=== PATIENT | male | born 1975 | race African-American/Black ===

== ENCOUNTER 2022-11-13 08:36 | Emergency (ER) | payer OTHER, SELFPAY ==
[2022-11-13] VITALS (66 sets, daily range): BP systolic 124–160; BP diastolic 71–99; PULSE 67–115; RESP 18; TEMP 36.2; O2SAT 95–100
--- NOTE | 2022-11-13 08:45 | RT.EKG_ITS ---
APPROVED REPORT Exam: Resting ECG Reason for Exam: Tachycardia Patient Location: E HR:98 bpm ECG Measurements Heart Rate 98 AXIS OK 142 P 51 QRSd 90 QRS 35 QT 354 T 11 QTc 453 Conclusion Sinus rhythm...normal P axis, V-rate 60- 99 Narrow complex normal sinus rhythm at a rate of 98. Normal axis. Intervals within normal limits. N o ST segment abnormalities. T wave inversion in V2. No prior for comparison.
--- NOTE | 2022-11-13 08:45 | DI.CT_ITS ---
Exam(s) CT HEAD WO EXAM: CT HEAD WO CLINICAL HISTORY: Head trauma. TECHNIQUE: Imaging Protocol: Axial computed tomography images with coronal and sagittal reformatted images were created and reviewed COMPARISON: No exams were available for comparison FINDINGS: Ventricles and Extra axial spaces: Normal in size and morphology for the patient's age. Hemorrhage: None. Cerebral parenchyma: Normal. Midline shift: None. Brainstem/Cerebellum: Normal. Calvarium: Normal. Visualized Paranasal sinuses/Mastoids: Clear. Soft Tissues: Unremarkable. IMPRESSION: 1. No acute intracranial process. 2. Findings were discussed with Dr. Vidal at 10:07 a.m. on 11/13/2022. RADIATION DOSE DELIVERED: 1,564.54mGy.cm Total DLP DATA REPOSITORY: All CT scans at this facility are submitted to the National Radiology Data Registry (NRDR) Dose Index Registry (DIR) with the [employer] ([employer]). RADIATION OPTIMIZATION: All CT scans at this facility use at least one of these dose optimization te chniques: automated exposure control; mA and/or kV adjustment per patient size (includes targeted exa ms where dose is matched to clinical indication); or iterative reconstruction.
--- NOTE | 2022-11-13 08:48 | ED.GENADUL_ITS ---
Discharge Plan Disposition Patient Disposition: Home Discharge Details Clinical Impression: Breakthrough seizure Primary Care Provider: None,None ED Provider: Pipo Vidal Home Meds and New Rx's Prescriptions: New hydrochlorothiazide 25 mg tablet 25 mg PO DAILY Qty: 30 0RF carvedilol 12.5 mg tablet 12.5 mg PO DAILY Qty: 30 0RF Rx Instructions: must administer with a meal/food amlodipine 10 mg tablet 10 mg PO DAILY Qty: 30 0RF levetiracetam 500 mg tablet 500 mg PO BID Qty: 60 0RF Discharge Instructions Instructions: Recurrent Seizures in Adults (ED) Additional Instructions: You were seen in the emergency department following your seizure. Please take these medications. Please return to the emergency department if you develop fevers chills or have any other seizures. Discharge Data Discharge Date/Time-TO BE ENTERED AT DEPARTURE: 11/13/22 11:25 Medical Decision Making This is a tachycardic hypertensive but afebrile and not hypoxic 47-year-old male with history of seizures arriving to the emergency department in the setting of breakthrough seizures off of his home medications. He is not diabetic to suggest increased risk for hypoglycemia. He does note history of falling and I am also concerned for intracranial hemorrhage so we will obtain a CT head. He denies any focal neurological deficits and he is neurologically intact at the moment so my suspicion for a CVA is exceedingly low and I do not feel that the patient is a tPA candidate nor would he benefit from an MRI emergently. No nuchal rigidity nor fevers to suggest meningitis so do not feel that the patient requires a lumbar puncture. No ongoing seizures from EEG as I am not concerned for status epilepticus. Given tachycardia will obtain twelve-lead ECG to assess for any tacky dysrhythmias which could have precipitated convulsions. Soft nontender abdomen so I am not concerned for intra-abdominal infection. No cough nor abnormal breath sounds to suggest pneumonia. I considered sepsis however the patient does not have infectious symptoms and as result I did not order any lactate blood cultures nor treat empirically with IV antibiotics. No pain out of proportion to suggest necrotizing soft tissue infection. Patient does have a list of his home medications which I ordered orally. He reports that he was previously on valproic acid however has been transitioned to levetiracetam. He does not know his dose of levetiracetam. I will provide him a 1.5 g dose of levetiracetam in the ED and I will provide him with a 1 L of normal saline bolus. Anticipate touching base with neurology for outpatient follow-up. Per Nexus criteria, cervical CT not obtained. The patient had no c-spine midline tenderness, no evidence of intoxication, was AAOx3, had no focal neurological deficits, and no painful distracting injuries. 9:20 AM CBC with leukocytosis but no anemia no thrombocytopenia no prior for comparison. Unfortunately neuro consultation is not available today. 10:09 AM Troponin negative. Negative ethanol. Basic metabolic panel with mild anion gap but no acute electrolyte abnormalities. Negative CT head. 10:43 AM Patient had no recurrent seizures in the ED. I have asked health community service officer Livia to have the patient seen within the week by neurology. I have also asked health community service officer Livia to have the patient be seen by primary care provider within the week as she does not have a local PCP. BP normalizaed in the ED. Chronic conditions affecting the care of the patient: History of seizures History obtained from an outside historian: N/A External record review: N/A. Diagnostic interpretations performed by me: Per my independent interpretation EKG shows: Narrow complex normal sinus rhythm at a rate of 98. Normal axis. Intervals within normal limits. No ST segment abnormalities. T wave inversion in V2. No prior for comparison. Medications: Levetiracetam and antihypertensives Social determinants of health affecting disposition: Recently relocated Management discussed with: N/A Treatment/interventions considered: Hospitalization but deferred Response to therapies provided: No recurrent seizures in the ED HPI General Date/Time Provider Initiated Documentation: 11/13/22 08:47 . HPI Narrative: This is a 47-year-old male with a history of seizure disorder and hypertension off of his medications for several months after relocating to the area now in [facility] emergency department in setting of breakthrough seizure. Patient reports that he was found by bystanders having had a seizure approximately 1 hour ago. He also notes that he had a seizure at approximately 2 AM and that he fell and hit his head. He has had some pain in his head subsequently. He reports that he takes levetiracetam and also takes hydrochlorothiazide carvedilol and amlodipine. He did not bite his tongue. He did not lose control of his bowels or bladder. He denies routine tobacco, ethanol, and illicits. He works as a welder first class. He has had no chest pain shortness of breath nausea nor vomiting. Related Data Home Medications Medication Instructions Recorded Confirmed amlodipine 10 mg tablet 10 mg PO DAILY #30 tabs 11/13/22 carvedilol 12.5 mg tablet 12.5 mg PO DAILY #30 tabs 11/13/22 hydrochlorothiazide 25 mg tablet 25 mg PO DAILY #30 tabs 11/13/22 levetiracetam 500 mg tablet 500 mg PO BID #60 tabs 11/13/22 Previous Rx's Medication Instructions Recorded amlodipine 10 mg tablet 10 mg PO DAILY #30 tabs 11/13/22 carvedilol 12.5 mg tablet 12.5 mg PO DAILY #30 tabs 11/13/22 hydrochlorothiazide 25 mg tablet 25 mg PO DAILY #30 tabs 11/13/22 levetiracetam 500 mg tablet 500 mg PO BID #60 tabs 11/13/22 General Stated Complaint: Seizure JOHANNY: 3 PFSH All Active Problems (Updated 11/13/22 @ 10:43 by Pipo Vidal MD) Breakthrough seizure (Acute) Social History Smoking/Tobacco Use Status: Never Smoking risk assessment performed?: Yes Alcohol Intake: never Drug use: Never Housing: house Exam Narrative Exam Narrative: General: Well-appearing in no acute distress speaking in complete sentences. Head: Normocephalic, atraumatic. Eye: Extraocular eye movements intact. No conjunctival injection. No scleral icterus. Ear, nose, mouth, throat: Grossly normal inspection. Normal voice, handling secretions normally. Bilateral TMs clear. No signs of trauma to the tongue. Neck: Trachea midline. No midline cervical spinal tenderness. Cardiovascular: Well-perfused distal extremities. Rapid regular rate. Respiratory: Nonlabored respiration. Clear lungs bilaterally. Gastrointestinal: Nondistended abdomen. Soft nontender. Musculoskeletal: No edema. Moving all 4 extremities spontaneously. Skin: Normal for age and race, grossly normal temperature and turgor. No acute rash. Neurologic: Alert and appropriate, no apparent acute deficits. GCS 15. Cranial nerves II through XII intact grossly. No dysmetria. No dysdiadochokinesia. No pronator drift. Psychiatric: Mood and manner are appropriate. Grooming and personal hygiene are appropriate. Course Vital Signs Vital signs: Vital Signs Temperature 36.2 C L 11/13/22 08:39 Pulse 115 H 11/13/22 08:39 Respiratory Rate 18 11/13/22 08:39 Blood Pressure 160/99 H 11/13/22 08:39 Pulse Oximetry 98 11/13/22 08:39 Temperature 36.2 C L 11/13/22 08:39 Temperature Source Skin 11/13/22 08:39 Pulse 115 H 11/13/22 08:39 Respiratory Rate 18 11/13/22 08:39 Blood Pressure 160/99 H 11/13/22 08:39 Blood Pressure Position Sitting 11/13/22 08:39 Pulse Oximetry 98 11/13/22 08:39 Oxygen Delivery Method Room Air 11/13/22 08:39 Oxygen Flow Rate 0 11/13/22 08:39 Pain Level 8 11/13/22 08:39
[2022-11-13] MEDS: Normal Saline 1,000 ML 1000 ML IV (09:00)
[2022-11-13 09:12] LABS: Abs Immature Grans 0.04 10^3/uL (0.0-0.06); Absolute Basophil Count 0.05 10^3/uL (0.0-0.2); Absolute Lymphocyte Count 2.31 10^3/uL (1.2-3.4); Basophils % 0.4; Eosinophils % 0.7; HCT 45.5 % (40.0-50.0); HGB 15.2 g/dL (13.5-17.5); Immature Grans % 0.3; Lymphocytes % 17.3; MCH 28.3 pg (27.0-33.0); MCHC 33.4 % (32.0-36.0); MCV 85 fL (80-95); Monocytes % 6.7; Neutrophils % 74.6; Platelet Count 292 10^3/uL (130-400); RBC 5.38 10^6/uL (4.36-5.78); RDW 12.7 % (11.8-14.1); RDW-SD 38.7 fL; WBC 13.35 10^3/uL (4.4-10.8)
[2022-11-13 09:14] LABS: Absolute Eosinophil Count 0.09 10^3/uL (0.0-0.7); Absolute Monocyte Count 0.89 10^3/uL (0.1-0.8); Absolute Neutrophil Count 9.96 10^3/uL (1.2-6.7)
[2022-11-13 09:30] LABS: Anion Gap 12.3 mmol/L (3-11); BUN 15 mg/dL (7-18); CO2 24.7 mmol/L (21.0-32.0); CREATININE 1.3 mg/dL (0.70-1.30); Calcium 9.4 mg/dL (8.5-10.1); Chloride 103 mmol/L (98-107); Estimated GFR 68.19 (mL/min/1.73m2); Glucose 130 mg/dL (74-106); Potassium 3.6 mmol/L (3.5-5.1); Sodium 140 mmol/L (136-145); Troponin I < 50 ng/L (<or=60)
[2022-11-13 09:31] LABS: ETHANOL BLOOD < 3.0 mg/dL (<10)
--- NOTE | 2022-11-13 10:12 | NUR.NOTE ---
Nursing Note: Assumed care of patient at this time. Report received from Kat Matt RN.
[2022-11-13] MEDS: Carvedilol 12.5 MG TAB PO (10:32)
[2022-11-13] MEDS: hydroCHLOROthiazide 25 MG TAB PO (10:32)
[2022-11-13] MEDS: amLODIPine 5 MG TAB 10 MG PO (10:32)
--- NOTE | 2022-11-13 14:28 | NUR.NOTE ---
PT TO BE SEEN WITH NEUROLOGY WITHIN A WEEK FOR SEIZURES Nursing Note:
--- NOTE | 2022-11-13 14:30 | NUR.NOTE ---
REFERRAL GIVEN TO CARE MANAGEMENT FOR PCP FOLLOW UP.Nursing Note:
== END 2022-11-13 11:25 | disposition home or self-care (01) ==
PROVIDERS: Emergency Provider Emergency Medicine
DX: G40.909 Epilepsy, unspecified, not intractable, without status epilepticus (principal); R00.0 Tachycardia, unspecified; I10 Essential (primary) hypertension; Z91.81 History of falling; Z79.899 Other long term (current) drug therapy
CPT/HCPCS: 36415; 80048; 93005; 96361; 96365; 99285; 70450; 80320; 84484; 85025; 93010; 99284; J1953